=== PATIENT | female | born 1950 | race African-American/Black ===

== ENCOUNTER → 2016-12-20 | Outpatient (CLI) | payer BC ==
[~2016-12-20] VITALS: Ht 163.8 cm; Wt 91.6 kg
[~2016-12-20] MED LIST: AMLO2.5T PO; ASPI81TA44 PO; CALC-31 PO; CLON1PAT3 TD; DOCU-109 PO; GLIM2TAB2 PO; Hydrocodone/Acetaminophen PO; LISI40TA PO; METO50TA29 PO; PIOG1TAB34 PO; SIMV40TA3 PO; atorvastatin PO
[2016-12-20 08:57] VITALS: BP 169/67
--- NOTE | 2016-12-20 10:13 | RAD ---
EXAM: Ultrasound-guided fine-needle aspiration of the right thyroid nodule. HISTORY: Right thyroid nodule. Biopsy is requested. COMPARISON: None. FINDINGS: The procedure along with its risks and benefits were explained to the patient. She agreed to proceed. A timeout procedure was performed. Sonographic evaluation of the thyroid gland again reveals a cystic and solid nodule in the right interpolar region measuring 1.5 x 1.1 cm. The overlying skin was sterilely prepped and infiltrated with 1% lidocaine for local anesthesia. Under ultrasound guidance, 4 passes were made into the lesion using 25-gauge needles. The fine needle aspirates were hand delivered to pathology and deemed adequate for analysis. A sterile dressing was placed. There were no immediate complications. IMPRESSION: 1. Successful ultrasound-guided fine-needle aspiration of a right thyroid nodule.
--- NOTE | 2016-12-21 10:20 | PATHOLOGY ---
CYTOPATHOLOGY REPORT CLINICAL HISTORY: Right thyroid nodule. SPECIMEN(S) RECEIVED: A.Fine needle aspiration, Right thyroid nodule 1.5 cm FINAL DIAGNOSIS: A. Fine needle aspiration, Right thyroid nodule 1.5 cm: - B[place] CATEGORY II. BENIGN - SPECIMEN CONSISTS OF THYROID FOLLICULAR CELLS WITH PREDOMINANTLY A MACROFOLLICULAR ARCHITECTURE ADMIXED WITH HEMOSIDERIN-LADEN MACROPHAGES AND COLLOID. - SEE COMMENT. (SHA:pit; 12/21/2016) COMMENT: These findings are consistent with adenomatoid nodule in nodular hyperplasia. A few micro follicles are present and the material aspirated may not be retail representative and a follicular neoplasm cannot be ruled out. Suggest radiological and clinical correlation. Diagnostic features of papillary carcinoma not seen. (SHA:pit; 12/21/2016) PATHOLOGIST: Sridhar Crocker M.D. REPORT ELECTRONICALLY SIGNED BY: Sridhar Crocker M.D. DATE/TIME: 12/21/2016 10:20 GROSS PATHOLOGY: A. Fine needle aspiration, Right thyroid nodule 1.5 cm: The specimen is labeled "Kermit Hassan" and consists of two fixed slides, two air dried slides, two H and E slides. Thirty mL of clear light pink in fixative from the needle rinse is also submitted and one ThinPrep slide and a alcohol fixed cell block were prepared from this material. (clt 12.20.2016) Also received is the RNARetain vial which will be held for molecular studies if needed. SUPERVISOR SIGN SHOP(S): IAN Lopez(ASCP)IAC INITIAL CPT CODE(S): A; 28393, 08925 Professional services performed by [facility] [place] [address] Technical services performed by [facility] at [address] [place] [address], [address] [address]. PATIENT: KERMIT HASSAN /AGE: 609/03/1950 (Age: 66) SEX: F PATIENT #: [id number] ALT CASE #: SPECIMEN COLLECTION DATE: 12/20/2016 SPECIMEN RECEIVED DATE: 12/20/[address] [facility], [address] [place] [address] PHONE: [phone] DIRECTOR: Zander Pantoja M.D. * * * END OF REPORT * * *
== END | disposition home or self-care (01) ==
LOC: US 08:11
PROVIDERS: ATTEND Surgery
DX: E04.1 Nontoxic single thyroid nodule (principal); I11.9 Hypertensive heart disease without heart failure; E11.9 Type 2 diabetes mellitus without complications
CPT/HCPCS: 76942; 88173; 88305